=== PATIENT | female | born 1950 | race Caucasian/White ===

== ENCOUNTER 2018-01-17 09:31 | Emergency (ER) | payer MEDICARE ==
[~2018-01-17] VITALS: Ht 160 cm; Wt 80.3 kg
[2018-01-17] MEDS ORDERED: DIOVAN160 MG PO (10:06)
[2018-01-17] MEDS ORDERED: OYSTER SHELL C1 EA12 PO (10:06)
[2018-01-17] MEDS ORDERED: OMEGA 3 1,0001 EACH PEG (10:06)
[2018-01-17] MEDS ORDERED: METOPROLOL TART25 MG PO (10:06)
[2018-01-17] MEDS ORDERED: [UNRECOGNIZED DRUG - OTHER] (10:06)
[2018-01-17] MEDS ORDERED: ZINC SULFATE220 M1 (10:06)
[2018-01-17] MEDS ORDERED: FENOFIBRATE145 MG PO (10:06)
[2018-01-17] MEDS ORDERED: AMLODIPINE BESY10 MG PO (10:06)
[2018-01-17] MEDS ORDERED: LEVOTHYROXINE100 MC1 PO (10:06)
[2018-01-17] MEDS ORDERED: ASPIR 8181 MG PO (10:06)
--- NOTE | 2018-01-17 11:12 | Diagnostic Imaging Report ---
Exam: Head CT without contrast History: Sudden onset visual disturbance, vertigo Comparison studies: None Technique: Axial images were obtained from the skull base to the vertex. Coronal and sagittal images reconstructed from the axial data. Radiation dose: Not available at the time of dictation. Intravenous contrast: None Findings: Scalp: No abnormalities. Bones: No fractures, blastic or lytic lesions. Brain sulci: Mildly prominent but age appropriate. Ventricles: Normal in size and configuration. No hydrocephalus. Extra-axial spaces: No masses, no fluid collection. Parenchyma: No mass, acute hemorrhage or acute or chronic cortical vascular insults. A few scattered hypodensities in the supratentorial white matter are nonspecific but most compatible with chronic microvascular ischemic changes. Sellar/suprasellar region: No abnormalities. Craniocervical junction: Patent foramen magnum. No Chiari one malformation. Incidental findings: Atherosclerotic calcifications in the carotid siphons. IMPRESSION: 1. No acute intracranial abnormalities. 2. Mild chronic microvascular ischemic changes. Signed by: Dr. Guzman Hernández M.D. on 01/17/2018 11:08 AM
== END 2018-01-17 11:40 | disposition home or self-care (01) ==
LOC: FSED 09:31
DX: R42 Dizziness and giddiness (principal); R11.2 Nausea with vomiting, unspecified; I10 Essential (primary) hypertension; E78.00 Pure hypercholesterolemia, unspecified; E03.9 Hypothyroidism, unspecified; M25.551 Pain in right hip; G89.29 Other chronic pain
CPT/HCPCS: 70450; 99284